=== PATIENT | male | born 1980 | race Caucasian/White ===

== ENCOUNTER 2024-06-13 17:22 | Emergency (ER) | payer BC ==
[2024-06-13 18:08] LABS: Specific Gravity < 1.005 (1.005-1.030); Sqamous Epithelial None Seen /HPF (None Seen); Urine Bacteria None Seen /HPF (<20); Urine Bilirubin NEGATIVE (Negative); Urine Blood Negative (Negative); Urine Clarity Clear (Clear); Urine Color Colorless (Yellow); Urine Culture Reflex Order NOT NEEDED; Urine Glucose NEGATIVE (Negative); Urine Ketones NEGATIVE (Negative); Urine Microscopic Reflex YN ORDER UMIC; Urine Nitrite NEGATIVE (Negative); Urine Protein NEGATIVE (Negative); Urine RBC <5 /HPF (None Seen); Urine Urobilinogen Normal (Normal); Urine WBC None Seen /HPF (<5)
[2024-06-13 18:10] LABS: Absolute Eosinophils 0.1 K/uL (0-0.5); Absolute Lymphocytes (CBC) 2.5 K/uL (0.7-4.9); Absolute Monocytes 0.7 K/uL (0.1-1.3); Absolute Neutrophil 5.7 K/uL (1.8-8.0); Basophils % 0.5 % (0-1.3); Eosinophils % 0.7 % (0-4.4); Hematocrit 42.1 % (39.6-49.0); Hemoglobin 14.3 g/dL (13.6-17.9); Lymphocytes % 27.5 % (15.3-44.8); MCH 31.4 pg (27.0-35.0); MCHC 33.9 g/dL (32.0-36.0); MCV 92.5 fL (80-100); MPV 9.2 fL (7.6-11.3); Monocytes % 7.8 % (3.3-12.3); Neutrophils % 63.5 % (41.7-73.7); Nucleated Red Blood Cells % 0.1 % (0-0); Platelets 211 thou/uL (152-406); RBC Red Blood Cell Count 4.55 M/uL (4.33-5.43); Red Cell Distribution Width 12.2 % (12.1-15.2)
--- NOTE | 2024-06-13 18:15 | RAD REPORT ---
EXAM DESCRIPTION: Kylee Single View06/13/2024 6:01 pm CLINICAL HISTORY: lightheaded COMPARISON: No comparisons TECHNIQUE: Portable AP view of the chest. FINDINGS: The lungs are clear. No pneumothorax or effusion. The cardiomediastinal contours are unre markable. IMPRESSION: No acute cardiopulmonary process.
[2024-06-13 18:27] LABS: Anion Gap 8.6 mEq/L (5.0-15.0); Magnesium 1.7 mg/dL (1.6-2.4); Potassium 3.6 mEq/L (3.5-5.1); Troponin High Sensitivity 6.6 pg/mL (<58.9)
--- NOTE | 2024-06-13 18:29 | RAD REPORT ---
EXAM DESCRIPTION: CT - Head Brain Wo Cont - 06/13/2024 6:02 pm CLINICAL HISTORY: DIZZINESS COMPARISON: No comparisons TECHNIQUE: Noncontrast head CT images were obtained without IV contrast. Multiplanar reformats were generated and reviewed. All CT scans are performed using dose optimization technique as appropriate and may include automated exposure control or mA/KV adjustment according to patient size. FINDINGS: No intracranial hemorrhage, mass, or edema. Midline structures are unremarkable. Normal ventricular caliber for age. Wetzel-white matter differentiation is preserved, without evidence of acute infarct. No abnormal extra- axial fluid collections. Mastoid air cells and visualized portions of the paranasal sinuses are clear. No acute bony findings. IMPRESSION: No evidence of an acute intracranial process.
[2024-06-13] MEDS ORDERED: NA CHLORIDE 0.9% 1,000 ML ONE (18:39)
[2024-06-13] MEDS ORDERED: ONDANSETRON 4 MG/2 ML VIAL ONE (19:41)
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
--- NOTE | 2024-06-13 19:52 | ER ---
Nurse's Notes [facility] Name: Avery Diggs Age: 44 yrs Sex: Male : 1980 Arrival Date: 06/13/2024 Time: 17:22 Bed 8 Private MD: Diagnosis: Hypo-osmolality and hyponatremia;Dizziness and giddiness Presentation: 06/13 17:37 Chief complaint: Patient states: got dehydrated/overheated about a month ago, felt dd2 organs were not functioning the way they should, still isnt right. Has back pain, more on the right than left. Feels disoriented at times, metallic taste in mouth at times, sometimes has numbness and chest pressure.... Coronavirus screen: At this time, the client does not indicate any symptoms associated with coronavirus-19. Ebola Screen: No symptoms or risks identified at this time. Initial Sepsis Screen: Does the patient meet any 2 criteria? No. Patient's initial sepsis screen is negative. Does the patient have a suspected source of infection? No. Patient's initial sepsis screen is negative. Risk Assessment: Do you want to hurt yourself or someone else? Patient reports no desire to harm self or others. Onset of symptoms is unknown. 17:37 Method Of Arrival: Ambulatory dd2 17:37 Acuity: CESARIO 3 dd2 Triage Assessment: 17:40 General: Appears in no apparent distress. Behavior is calm, cooperative. Pain: dd2 Complains of pain in left low back, left mid back, right mid back and right low back. Historical: - Allergies: 17:40 No Known Allergies; dd2 - Home Meds: 17:40 None [Active]; dd2 - PMHx: 17:40 None; dd2 - PSHx: 17:40 None; dd2 - Immunization history:: Adult Immunizations up to date. - Infectious Disease History:: Denies. - Social history:: Smoking status: Patient denies any tobacco usage or history of. Screenin:58 [facility] ED Fall Risk Assessment (Adult) History of falling in the last 3 months, cm10 including since admission No falls in past 3 months (0 pts) Confusion or Disorientation No (0 pts) Intoxicated or Sedated No (0 pts) Impaired Gait No (0 pts) Mobility Assist Device Used No (0 pt) Altered Elimination No (0 pt) Score/Fall Risk Level 0 - 2 = Low Risk Oriented to surroundings, Maintained a safe environment, Hourly rounding (assess needs \T\ fall precautionary measures) done. Abuse screen: Denies threats or abuse. Denies injuries from another. Nutritional screening: No deficits noted. Tuberculosis screening: No symptoms or risk factors identified. Assessment: 17:58 General: Appears in no apparent distress. comfortable, Behavior is calm, cooperative. cm10 Neuro: No deficits noted. Level of Consciousness is awake, alert, obeys commands, Oriented to person, place, time, situation, Appropriate for age Line Palletizer are equal bilaterally Moves all extremities. Gait is steady, Speech is normal, Reports dizziness, headache. Cardiovascular: No deficits noted. Heart tones S1 S2 present Patient's skin is warm and dry. Respiratory: No deficits noted. Airway is patent Respiratory effort is even, unlabored, Respiratory pattern is regular, symmetrical, Breath sounds are clear bilaterally. GI: No deficits noted. Abdomen is flat, Bowel sounds present X 4 quads. Derm: No deficits noted. Skin is intact, Skin is pink, warm \T\ dry. Musculoskeletal: No deficits noted. Range of motion: intact in all extremities. 18:43 Reassessment: Patient appears in no apparent distress at this time. No changes from cm10 previously documented assessment. Patient and/or family updated on plan of care and expected duration. Pain level reassessed. Patient is alert, oriented x 3, equal unlabored respirations, skin warm/dry/pink. 19:28 General: Appears in no apparent distress. comfortable, Behavior is calm, cooperative. al5 Pain: Denies pain. Neuro: Level of Consciousness is awake, alert, obeys commands, Oriented to person, place, time, situation. Cardiovascular: Patient's skin is warm and dry. Respiratory: Airway is patent Respiratory effort is even, unlabored, Respiratory pattern is regular, symmetrical. GI: No signs and/or symptoms were reported involving the gastrointestinal system. : No signs and/or symptoms were reported regarding the genitourinary system. EENT: No signs and/or symptoms were reported regarding the EENT system. Derm: Skin is intact, Skin is pink, warm \T\ dry. Musculoskeletal: No signs and/or symptoms reported regarding the musculoskeletal system. Vital Signs: 17:37 BP 156 / 96; Pulse 69; Resp 15; Temp 97.2; Pulse Ox 100% ; Weight 90.72 kg; Height 5 dd2 ft. 7 in. ; 18:00 BP 132 / 79; Pulse 63; Resp 14; Pulse Ox 99% on R/A; cm10 18:30 BP 129 / 85; Pulse 69; Resp 19; Pulse Ox 100% on R/A; cm10 19:00 BP 138 / 78; Pulse 58; Resp 16; Pulse Ox 99% on R/A; al5 17:37 Body Mass Index 31.32 (90.72 kg, 170.18 cm) dd2 Vitals: 17:58 Cardiac Rhythm Assessment Regular Sinus rhythm. cm10 ED Course: 17:25 Patient arrived in ED. mr 17:26 Quincy Mendez DO is Attending Physician. ms3 17:40 Triage completed. dd2 17:40 Arm band placed on left wrist. Patient placed in an exam room, on a stretcher, on dd2 cafeteria monitor, on pulse oximetry, Patient notified of wait time. 17:42 Placed in gown. Bed in low position. Call light in reach. Side rails up X 1. Provided mb9 Education on: press call light if needing anything. Client placed on continuous cardiac and pulse oximetry monitoring. NIBP monitoring applied. alarm security or surveillance monitor on. 17:45 Asuncion Lujan, RN is Primary Nurse. cm10 17:57 EKG done, by ED staff, reviewed by Quincy Mendez DO. mb9 17:58 No provider procedures requiring assistance completed. Initial lab(s) drawn, by mo, cm10 sent to lab. Inserted saline lock: 20 gauge in right antecubital area, using aseptic technique. Blood collected. Flushed with 10 mL NS. 17:58 Basic Metabolic Panel Sent. cm10 17:58 Urinalysis w/ reflexes Sent. cm10 17:58 CBC with Diff Sent. cm10 17:58 Magnesium Sent. cm10 17:58 Troponin HS Sent. cm10 18:02 XRAY Chest (1 view) In Process Unspecified. EDMS 18:04 CT Head Brain wo Cont In Process Unspecified. EDMS 19:10 Primary Nurse role handed off by Asuncion Lujan, RN al5 19:10 Argenis Ward RN is Primary Nurse. al5 19:51 Caleb Hicks MD is Referral Physician. ms3 19:57 IV discontinued, intact, bleeding controlled, No redness/swelling at site. Pressure al5 dressing applied. Administered Medications: 18:42 Drug: NS 0.9% IV 1000 ml IV at 1 bolus Per protocol; 1000 mL bolus Route: IV; Rate: 1 cm10 bolus; Site: right antecubital; 19:45 Follow up: Response: No adverse reaction; IV Status: Infusion continued; IV Intake: al5 1000ml 19:44 Drug: Ondansetron IVP 4 mg IVP once; over 2 minutes Route: IVP; Site: right antecubital;al5 19:57 Follow up: Response: No adverse reaction al5 Medication: 17:58 VIS not applicable for this client. cm10 Intake: 19:45 IV: 1000ml; Total: 1000ml. al5 Outcome: 19:51 Discharge ordered by MD. ms3 19:57 Discharged to home ambulatory, al5 19:57 Condition: good 19:57 Discharge instructions given to patient, Instructed on discharge instructions, follow up and referral plans. Demonstrated understanding of instructions, follow-up care, 19:58 Patient left the ED. al5 Signatures: Dispatcher [employer] EDMS JoaquinRosalba, Reg Reg mr Vanessa Quincy, DO DO ms3 Rosalba Dao, RN RN mb9 Asuncion Lujan RN RN cm10 Argenis Ward RN RN al5 AMARA GOMEZ RN RN dd2
[2024-06-13 20:06] VITALS: TEMP 97.2
[2024-06-13 20:09] VITALS: BP 138/78; O2SAT 99
== END 2024-06-13 19:58 | disposition home or self-care (01) ==
LOC: ER 17:22
DX: E87.1 Hypo-osmolality and hyponatremia (principal); R20.0 Anesthesia of skin
CPT/HCPCS: 85025; 81001; 80048; 36415; 83735; 84484; 70450; 71045; J2405; J7030; 93005

== ENCOUNTER 2024-07-04 13:53 | Emergency (ER) | payer BC ==
[2024-07-04] MEDS ORDERED: NA CHLORIDE 0.9% 1,000 ML ONE (15:24)
[2024-07-04 16:09] LABS: Albumin 4.5 g/dL (3.4-5.0); Albumin/Globulin Ratio 1.3 (1.1-1.8); Anion Gap 8.4 mEq/L (5.0-15.0); Bilirubin Total 0.4 mg/dL (0.2-1.0); Globulin 3.6 g/dL (2.3-3.5); Magnesium 2.2 mg/dL (1.6-2.4); Potassium 3.4 mEq/L (3.5-5.1); Protein, Total 8.1 g/dL (6.4-8.2)
--- NOTE | 2024-07-04 16:33 | ER ---
Nurse's Notes [facility] Name: Avery Diggs Age: 44 yrs Sex: Male : 1980 Arrival Date: 07/04/2024 Time: 13:53 Bed 20 Private MD: Diagnosis: Essential (primary) hypertension;Dizziness and giddiness Presentation: 07/04 14:35 Chief complaint: Patient states: DIZZINESS, BACK PAIN, STATES SEEN FOR HYPONATREMIA db PREVIOUSLY AND HAD SIMILAR SYMPTOMS. HAS APPT WITH CARDIOLOGY AND PCP. Coronavirus screen: Client denies travel out of the [place] in the last 14 days. At this time, the client does not indicate any symptoms associated with coronavirus-19. Ebola Screen: Patient negative for fever greater than or equal to 101.5 degrees Fahrenheit, and additional compatible Ebola Virus Disease symptoms Patient denies exposure to infectious person. Patient denies travel to an Ebola-affected area in the 21 days before illness onset. No symptoms or risks identified at this time. Initial Sepsis Screen: Does the patient meet any 2 criteria? No. Patient's initial sepsis screen is negative. Does the patient have a suspected source of infection? No. Patient's initial sepsis screen is negative. Risk Assessment: Do you want to hurt yourself or someone else? Patient reports no desire to harm self or others. Onset of symptoms was July 04, 2024. 14:35 Method Of Arrival: Ambulatory db 14:35 Acuity: CESARIO 3 db Triage Assessment: 14:37 General: Appears in no apparent distress. comfortable, Behavior is calm, cooperative. db Pain: Complains of pain in back. Neuro: Level of Consciousness is awake, alert, obeys commands, Oriented to person, place, time, situation. Respiratory: Airway is patent Respiratory effort is even, unlabored, Respiratory pattern is regular, symmetrical. Musculoskeletal: Circulation, motion, and sensation intact. Historical: - Allergies: 14:37 No Known Allergies; db - PMHx: 14:37 None; db - PSHx: 14:37 None; db - Immunization history:: Adult Immunizations unknown. - Infectious Disease History:: Denies. - Social history:: Smoking status: Patient denies any tobacco usage or history of. - Family history:: not pertinent. - Hospitalizations: : No recent hospitalization is reported. Screenin:11 [facility] ED Fall Risk Assessment (Adult) History of falling in the last 3 months, tm6 including since admission No falls in past 3 months (0 pts) Confusion or Disorientation Yes (5 pts) Intoxicated or Sedated No (0 pts) Impaired Gait No (0 pts) Mobility Assist Device Used No (0 pt) Altered Elimination No (0 pt) Score/Fall Risk Level 3 or more points = High Risk Oriented to surroundings, Maintained a safe environment, Educated pt \T\ family on fall prevention, incl call for assistance when getting out of bed. Abuse screen: Denies threats or abuse. Denies injuries from another. Nutritional screening: No deficits noted. Tuberculosis screening: No symptoms or risk factors identified. Assessment: 16:11 General: Appears in no apparent distress. Behavior is calm, cooperative. Pain: Denies tm6 pain. Neuro: Level of Consciousness is awake, alert, obeys commands, Oriented to person, place, time, situation, Reports head pressure and disorientation. Cardiovascular: Patient's skin is warm and dry. Rhythm is sinus bradycardia. Respiratory: Airway is patent Respiratory effort is even, unlabored, Respiratory pattern is regular, symmetrical. GI: No signs and/or symptoms were reported involving the gastrointestinal system. Abdomen is flat, non-distended. : No signs and/or symptoms were reported regarding the genitourinary system. EENT: No signs and/or symptoms were reported regarding the EENT system. Derm: No signs and/or symptoms reported regarding the dermatologic system. Musculoskeletal: No signs and/or symptoms reported regarding the musculoskeletal system. 16:44 Reassessment: Patient and/or family updated on plan of care and expected duration. Pain tm6 level reassessed. Patient is alert, oriented x 3, equal unlabored respirations, skin warm/dry/pink. Vital Signs: 14:35 BP 146 / 88; Pulse 64; Resp 18; Temp 97.6; Pulse Ox 100% on R/A; Weight 83.91 kg; db Height 5 ft. 7 in. ; 16:11 BP 176 / 94; Pulse 62; Pulse Ox 100% on R/A; tm6 16:44 BP 169 / 105; Pulse 50; Pulse Ox 100% on R/A; Pain 0/10; tm6 14:35 Body Mass Index 28.97 (83.91 kg, 170.18 cm) db 16:44 Pain Scale: Adult tm6 ED Course: 13:57 Patient arrived in ED. mg5 14:21 Alfonzo Meléndez MD is Attending Physician. rn 14:37 Triage completed. db 14:37 Arm band placed on right wrist. Patient placed in waiting room. db 15:09 Jv Ortega, RN is Primary Nurse. tm6 15:46 Magnesium Sent. bc6 15:46 CMP Sent. bc6 15:46 Initial lab(s) drawn, by me, sent to lab. Inserted saline lock: 24 gauge in right bc6 antecubital area, using aseptic technique. Blood collected. Flushed with 10 mL NS. 16:11 Patient has correct armband on for positive identification. Bed in low position. Call tm6 light in reach. Side rails up X 1. Provided Education on: use of call collins. Client placed on continuous cardiac and pulse oximetry monitoring. NIBP monitoring applied. cafeteria monitor on. Pulse ox on. NIBP on. Door closed. Noise minimized. Lights dimmed. Warm blanket given. Pillow given. 16:11 EKG done, by ED staff, reviewed by Alfonzo Meléndez MD. tm6 16:45 No provider procedures requiring assistance completed. IV discontinued, intact, tm6 bleeding controlled, No redness/swelling at site. Pressure dressing applied. Administered Medications: 16:10 Drug: NS 0.9% IV 1000 ml IV at 1000 ml once Route: IV; Rate: 1000 ml; Site: right tm6 antecubital; 16:45 Follow up: Response: No adverse reaction; IV Status: Completed infusion; IV Intake: tm6 1000ml Medication: 16:11 VIS not applicable for this client. tm6 Intake: 16:45 IV: 1000ml; Total: 1000ml. tm6 Outcome: 16:32 Discharge ordered by MD. rn 16:45 Discharged to home ambulatory, with family, tm6 16:45 Condition: stable 16:45 Discharge instructions given to patient, family, Instructed on discharge instructions, follow up and referral plans. Demonstrated understanding of instructions, follow-up care, 16:45 Patient left the ED. tm6 Signatures: Alfonzo Meléndez MD MD rn Benton, Danielle, RN RN Lea Joya 6 Homa Jenkins mg5 Jv Ortega, RN RN tm6 Corrections: (The following items were deleted from the chart) 14:39 14:35 Chief complaint: Patient states: DIZZINESS, BACK PAIN, STATES SEEN FOR db HYPONATREMIA PREVIOUSLY AND HAD SIMILAR SYMPTOMS. HAS APPT WITH CARDIOLOGY AND NEUROLOGY db
--- NOTE | 2024-07-04 16:33 | EDPHYS ---
Physician Documentation [facility] Name: Avery Diggs Age: 44 yrs Sex: Male : 1980 Arrival Date: 07/04/2024 Time: 13:53 Bed 20 Private MD: ED Physician Alfonzo Meléndez HPI: 07/04 15:45 This 44 yrs old Male presents to ER via Ambulatory with complaints of Back Pain, rn Dizziness, Doesn't Feel Right. 15:46 Patient reports seen here recently, diagnosed with hyponatremia, still having dizzy rn spells, muscle cramps in the back and trouble multitasking. No seizure. No syncope. Patient has follow-up appointments with specialist but has not completed any visits yet.. 15:47 Onset: The symptoms/episode began/occurred 3 week(s) ago. Severity of symptoms: At rn their worst the symptoms were moderate in the emergency department the symptoms have improved. The patient has experienced a previous episode. The patient has been recently seen at the [facility] Emergency Department. Historical: - Allergies: 14:37 No Known Allergies; db - PMHx: 14:37 None; db - PSHx: 14:37 None; db - Immunization history:: Adult Immunizations unknown. - Infectious Disease History:: Denies. - Social history:: Smoking status: Patient denies any tobacco usage or history of. - Family history:: not pertinent. - Hospitalizations: : No recent hospitalization is reported. ROS: 15:47 Constitutional: Negative for fever, chills, and weight loss, Cardiovascular: Negative rn for chest pain, palpitations, and edema, Respiratory: Negative for shortness of breath, cough, wheezing, and pleuritic chest pain, Abdomen/GI: Negative for abdominal pain, nausea, vomiting, diarrhea, and constipation, MS/Extremity: Negative for injury and deformity, Skin: Negative for injury, rash, and discoloration, Neuro: Negative for headache, tingling, and seizure, Exam: 15:47 Constitutional: This is a well developed, well nourished patient who is awake, alert, rn and in no acute distress. ENT: Dry mucous membranes Cardiovascular: Regular rate and rhythm. No pulse deficits. Respiratory: No increased work of breathing, no retractions or nasal flaring. Abdomen/GI: Soft, non-tender MS/ Extremity: Pulses equal, no cyanosis. Neuro: Awake and alert, GCS 15, normal strength, normal sensation, normal gait 16:05 ECG was reviewed by the Attending Physician. rn Vital Signs: 14:35 BP 146 / 88; Pulse 64; Resp 18; Temp 97.6; Pulse Ox 100% on R/A; Weight 83.91 kg; db Height 5 ft. 7 in. ; 16:11 BP 176 / 94; Pulse 62; Pulse Ox 100% on R/A; tm6 16:44 BP 169 / 105; Pulse 50; Pulse Ox 100% on R/A; Pain 0/10; tm6 14:35 Body Mass Index 28.97 (83.91 kg, 170.18 cm) db 16:44 Pain Scale: Adult tm6 MDM: 14:21 Patient medically screened. rn 16:30 Differential Diagnosis Acute kidney injury, electrolyte disorder, endocrine disorder, rn dehydration. Data reviewed: vital signs, nurses notes, old medical records, Reviewed old medical records, CT head negative for acute findings, sodium was 127 at that time along with hypochloremia. lab test result(s), and as a result, I will discharge patient. Counseling: I had a detailed discussion with the patient and/or guardian regarding the historical points, exam findings, and any diagnostic results supporting the discharge/admit diagnosis, lab results, the need for outpatient follow up, to return to the emergency department if symptoms worsen or persist or if there are any questions or concerns that arise at home. Special discussion: I discussed with the patient/guardian in detail that at this point there is no indication for admission to the hospital. It is understood, however, that if the symptoms persist or worsen the patient needs to return immediately for re-evaluation. Based on the history and exam findings, there is no indication for further emergent testing or inpatient evaluation. I discussed with the patient/guardian the need to see the primary care provider for further evaluation of the symptoms. Nephrology. ED course: Patient feels better, sodium now normal, likely secondary to increased sodium intake by patient. Spoke at length with patient and spouse, needs to continue taking blood pressure measurements and diary given all of the symptoms could be secondary to hypertension which patient has strong family history. Has follow-up appointment this week with PCP and cardiology. Will defer blood pressure management to them.. 07/04 14:43 Order name: CMP; Complete Time: 16:09 db 07/04 14:43 Order name: Magnesium; Complete Time: 16:09 db 03 14:43 Order name: IV Start; Complete Time: 15:46 db 07/04 14:43 Order name: EKG - Nurse/Tech; Complete Time: 16:10 db EC:05 Rate is 54 beats/min. Rhythm is regular. QRS [place] is Normal. GA interval is normal. QRS rn interval is normal. QT interval is normal. No Q waves. T waves are Normal. No ST changes noted. Clinical impression: Sinus bradycardia. Interpreted by me. Reviewed by me. Administered Medications: 16:10 Drug: NS 0.9% IV 1000 ml IV at 1000 ml once Route: IV; Rate: 1000 ml; Site: right tm6 antecubital; 16:45 Follow up: Response: No adverse reaction; IV Status: Completed infusion; IV Intake: tm6 1000ml Disposition Summary: 07/04/24 16:32 Discharge Ordered Notes: Location: Home rn Problem: new rn Symptoms: have improved rn Condition: Stable rn Diagnosis - Essential (primary) hypertension rn - Dizziness and giddiness rn Followup: rn - With: Private Physician - When: As needed - Reason: Recheck today's complaints, Re-evaluation by your physician Discharge Instructions: - Discharge Summary Sheet rn - Hypertension, Adult rn - Heart Disease pattern assembler - How to Take Your Blood Pressure, [id number] rn - Managing Your Hypertension rn Forms: - Medication Reconciliation Form rn - Antibiotic project intern - Prescription Opioid Use rn - Patient Portal Instructions rn - Leadership Thank You Letter rn Signatures: Dispatcher [facility] Alfonzo Mel[facility]dez MD MD rn Benton, Danielle RN Jv Clark RN RN tm6 Corrections: (The following items were deleted from the chart) 14:44 14:44 COMPREHENSIVE METABOLIC PANEL+C.LAB.BRZ ordered. EDPA EDMS 14:44 14:44 MAGNESIUM+C.LAB.BRZ ordered. [facility] EDMS 16:06 16:05 Rate is 54 beats/min. Rhythm is regular. QRS [place] is Normal. GA interval is rn normal. QRS interval is normal. QT interval is normal. No Q waves. T waves are Normal. No ST changes noted. Clinical impression: Sinus tachycardia. Interpreted by me. Reviewed by me. rn
[2024-07-04 17:02] VITALS: TEMP 97.6; O2SAT 100
[2024-07-04 17:13] VITALS: BP 169/105
--- NOTE | 2024-07-05 12:09 | EKG ---
Test Date: 2024-07-04 Test Time: 16:00:07 Clinical Auditor: MARTIN MEASUREMENT RESULTS: Intervals: Rate: 54 IA: 170 QRSD: 100 QT: 436 QTc: 413 Gary: P: 61 IA: 170 QRS: 54 T: 25 INTERPRETIVE STATEMENTS: Sinus bradycardia Otherwise normal ECG Compared to ECG 06/13/2024 17:53:44 Sinus rhythm no longer present Electronically Signed On 07-05-24 12:06:31 CDT by Venkatesh Davies
== END 2024-07-04 16:45 | disposition home or self-care (01) ==
LOC: ER 13:53
DX: I10 Essential (primary) hypertension (principal); M54.9 Dorsalgia, unspecified
CPT/HCPCS: 93005; 36415; 83735; 80053; 96360; 99285; J7030